=== PATIENT | female | born 1950 | race Two or more races ===

== ENCOUNTER 2022-03-08 22:13 | Emergency (ER) | payer MEDICARE, MEDICAID ==
[~2022-03-08] VITALS: Ht 147.3 cm; Wt 70.5 kg
[~2022-03-08 22:13] MED LIST: ASPI-1450 PO
[2022-03-08 23:48] VITALS: BP 141/74
== END 2022-03-09 | disposition left against medical advice (07) ==
LOC: EMS 22:15
DX: R07.0 Pain in throat (principal); Z53.21 Procedure and treatment not carried out due to patient leaving prior to being seen by health care provider